=== PATIENT | male | born 1985 | race American Indian/Alaskan Native ===

== ENCOUNTER 2017-07-01 22:08 | Emergency (ER) | payer BC ==
[2017-07-01 22:31] VITALS: TEMP 98.1; BMI 28.5
[2017-07-01] MEDS ORDERED: Oxycodone/Acetaminophen 5/325 mg Tab PO STA (22:40)
--- NOTE | 2017-07-01 22:40 | ED PDOC ---
Arrival/HPI - General Chief Complaint: Headache Time Seen by Provider: 07/01/17 22:24 Historian: Patient - History of Present Illness Narrative History of Present Illness (Text): 07/01/17 22:37 Marquis Ivanna Magaña is a 32 year old male who presents to the Emergency department complaining of headache discomfort since yesterday. Patient states headache is located at front and top of his head, described as a throbbing sensation. Patient denies any neck pain, back pain, fever, chills, visual disturbances, or any other complaints. Patients states he took Tylenol earlier today with no relief. Symptom Onset: Gradual Symptom Course: Unchanged Activities at Onset: Light Context: Home Past Medical History - Provider Review Nursing Documentation Reviewed: Yes - Infectious Disease Hx of Infectious Diseases: None - Psychiatric Hx Psychophysiologic Disorder: No Hx Anxiety: No Hx Bipolar Disorder: No Hx Depression: No Hx Emotional Abuse: No Hx Hallucinations: No Hx Panic Disorder: No Hx Post Traumatic Stress Disorder: No Hx Psychosis: No Hx Physical Abuse: No Hx Schizophrenia: No Hx Sexual Abuse: No Hx Substance Use: No - Anesthesia Hx Anesthesia: Yes Hx Anesthesia Reactions: No Hx Malignant Hyperthermia: No Family/Social History - Physician Review Nursing Documentation Reviewed: Yes Family/Social History: Unknown Family HX Smoking Status: Never Smoked Hx Alcohol Use: No Hx Substance Use: No Allergies/Home Meds Allergies/Adverse Reactions: Allergies Penicillins Allergy (Verified 07/04/15 18:36) ANAPHYLAXIS Review of Systems - Physician Review All systems were reviewed & negative as marked: Yes - Review of Systems Constitutional: Normal. absent: Fevers Eyes: Normal. absent: Vision Changes ENT: Normal Respiratory: Normal. absent: SOB, Cough Cardiovascular: Normal. absent: Chest Pain Gastrointestinal: Normal. absent: Abdominal Pain, Diarrhea, Nausea, Vomiting Genitourinary Male: Normal. absent: Dysuria, Frequency, Hematuria, Urinary Output Changes Musculoskeletal: Normal. absent: Back Pain, Neck Pain Skin: Normal. absent: Rash Neurological: Headache. absent: Dizziness, Focal Weakness Endocrine: Normal Hemo/Lymphatic: Normal Psychiatric: Normal Physical Exam Vital Signs Reviewed: Yes Vital Signs Temp Pulse Resp BP Pulse Ox 07/01/17 22:30 98.1 F 73 18 145/100 H 98 Temperature: Afebrile Blood Pressure: Normal Pulse: Regular Respiratory Rate: Normal Appearance: Positive for: Well-Appearing, Non-Toxic, Comfortable Pain Distress: None Mental Status: Positive for: Alert and Oriented X 3 - Systems Exam Head: Present: Atraumatic, Normocephalic Pupils: Present: PERRL Extroacular Muscles: Present: EOMI Conjunctiva: Present: Normal Mouth: Present: Moist Mucous Membranes Neck: Present: Normal Range of Motion. No: Meningeal Signs, MIDLINE TENDERNESS , Paraspinal Tenderness Respiratory/Chest: Present: Clear to Auscultation, Good Air Exchange. No: Respiratory Distress, Accessory Muscle Use Cardiovascular: Present: Regular Rate and Rhythm, Normal S1, S2. No: Murmurs Abdomen: Present: Normal Bowel Sounds. No: Tenderness, Distention, Peritoneal Signs Back: Present: Normal Inspection. No: CVA Tenderness, Midline Tenderness, Paraspinal Tenderness Upper Extremity: Present: Normal Inspection. No: Cyanosis, Edema Lower Extremity: Present: Normal Inspection. No: Edema Neurological: Present: GCS=15, CN II-XII Intact, Speech Normal, Motor Func Grossly Intact, Normal Sensory Function, Normal Cerebellar Funct, Gait Normal, Memory Normal Skin: Present: Warm, Dry, Normal Color. No: Rashes Psychiatric: Present: Alert, Oriented x 3, Normal Insight, Normal Concentration Medical Decision Making ED Course and Treatment: 07/01/17 22:37 Impression: 32 year old male complaining of throbbing headache discomfort. Plan: -- CT Head w/o contrast -- Percocet -- Reassess and disposition Progress Notes: 07/02/17 00:29 CT Head shows: Brain: Streaking artifact from metallic foci or foreign bodies are visualized in the region of the lateral left orbital wall. This artifact limits evaluation of the base of the brain and posterior fossa for hemorrhage or infarct, most significant in the region of the anterior left temporal lobe. Aside from the areas of artifact, the white-santillan differentiation is preserved demonstrating no acute territorial type infarct. Aside from the areas of artifact, no acute intracranial hemorrhage is seen. Midline shift: There is no midline shift. Ventricles: No ventriculomegaly. Bones/joints: The calvarium demonstrates no evidence for a depressed fracture. Soft tissues: No acute abnormality. Sinuses: Unremarkable as visualized. No acute sinusitis. Mastoid air cells: No mastoid effusion. IMPRESSION: 1. Streaking artifact from metallic foci or foreign bodies are visualized in the region of the lateral left orbital wall. This artifact limits evaluation of the base of the brain and posterior fossa for hemorrhage or infarct, most significant in the region of the anterior left temporal lobe. 2. Aside from the areas of artifact, there is no acute intracranial hemorrhage or acute territorial type infarct. 3. A follow-up CT is recommended if clinical symptoms persist. 07/02/17 01:20 On re-evaluation, patient feels better after medication. Patient is stable for discharge. Patient was instructed to follow up with physician or return if symptoms worsen or new concerning symptoms arise. 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 No Sleep Is patient sleeping during reassessment? No Presence of Pain Presence of Pain Yes - Scribe Statement The provider has reviewed the documentation as recorded by the Scribe Mariia Romero All medical record entries made by the Scribe were at my direction and personally dictated by me. I have reviewed the chart and agree that the record accurately reflects my personal performance of the history, physical exam, medical decision making, and the department course for this patient. I have also personally directed, reviewed, and agree with the discharge instructions and disposition. Disposition/Present on Arrival - Present on Arrival Any Indicators Present on Arrival: No History of DVT/PE: No History of Uncontrolled Diabetes: No Urinary Catheter: No History of Decub. Ulcer: No History Surgical Site Infection Following: None - Disposition Have Diagnosis and Disposition been Completed?: Yes Diagnosis: Headache Disposition: HOME/ ROUTINE Disposition Time: :18 Patient Plan: Discharge Patient Problems: Current Active Problems Problem Status Onset Headache Acute Condition: GOOD Discharge Instructions (ExitCare): Tension Headache Additional Instructions: Medication as prescribed/follow up with your doctor this week Prescriptions: Acetaminophen/Butalbital/Caf [Fioricet] 1 tab PO Q6 PRN #10 tab PRN Reason: Headache Forms: [employer] (Slovak)
--- NOTE | 2017-07-02 00:26 | CT ---
EXAM: CT Head Without Intravenous Contrast EXAM DATE/TIME: 07/01/2017 10:47 PM CLINICAL HISTORY: The patient age is 32 years old and is male; Pain; Headache; Headache not specified Facility exam id and description: Ct heads head w/o contrast TECHNIQUE: Axial computed tomography images of the head/brain without intravenous contrast. All CT scans at this facility use one or more dose reduction techniques, viz.: automated exposure control; ma/kV adjustment per patient size (including targeted exams where dose is matched to indication; i.e. head); or iterative reconstruction technique. Coronal and sagittal reformatted images were created and reviewed. COMPARISON: No relevant prior studies available. FINDINGS: Brain: Streaking artifact from metallic foci or foreign bodies are visualized in the region of the lateral left orbital wall. This artifact limits evaluation of the base of the brain and posterior fossa for hemorrhage or infarct, most significant in the region of the anterior left temporal lobe. Aside from the areas of artifact, the white-santillan differentiation is preserved demonstrating no acute territorial type infarct. Aside from the areas of artifact, no acute intracranial hemorrhage is seen. Midline shift: There is no midline shift. Ventricles: No ventriculomegaly. Bones/joints: The calvarium demonstrates no evidence for a depressed fracture. Soft tissues: No acute abnormality. Sinuses: Unremarkable as visualized. No acute sinusitis. Mastoid air cells: No mastoid effusion. IMPRESSION: 1. Streaking artifact from metallic foci or foreign bodies are visualized in the region of the lateral left orbital wall. This artifact limits evaluation of the base of the brain and posterior fossa for hemorrhage or infarct, most significant in the region of the anterior left temporal lobe. 2. Aside from the areas of artifact, there is no acute intracranial hemorrhage or acute territorial type infarct. 3. A follow-up CT is recommended if clinical symptoms persist.
[2017-07-02 01:27] VITALS: BP 147/90; PULSE 70; RESP 17; O2SAT 99
== END 2017-07-02 01:27 | disposition home or self-care (01) ==
LOC: ED 22:08
DX: R51 Headache (principal)